=== PATIENT | female | born 1960 ===

== ENCOUNTER 2022-01-13 04:45 | Day surgery (SDC) | payer OTHER | END 2022-01-13 09:45 | disposition home or self-care (01) | LOC: AMB-ENDOS 04:45 → CIR.AMB 13:00 | PROVIDERS: ATTEND Colon & Rectal Surgery | DX: D12.0 Benign neoplasm of cecum (principal); K64.0 First degree hemorrhoids; Z20.822 Contact with and (suspected) exposure to COVID-19; E03.9 Hypothyroidism, unspecified; E78.5 Hyperlipidemia, unspecified; I10 Essential (primary) hypertension ==

== ENCOUNTER 2023-05-03 08:22 | Outpatient (CLI) | payer OTHER | END 2023-05-03 08:34 | disposition home or self-care (01) | LOC: TOM 08:22 | DX: D13.2 Benign neoplasm of duodenum (principal) | CPT/HCPCS: 74160; Q9965 ==